=== PATIENT | female | born 1970 | race Caucasian/White ===

== ENCOUNTER 2016-08-18 08:21 | Outpatient (CLI) ==
[2015-03-03 14:16] VITALS: BMI 28.1
--- NOTE | 2016-08-18 09:21 | MAMMO ---
EXAM: Digital left diagnostic mammogram HISTORY: Nodular density posteriorly on the left MLO COMPARISON: Screening mammogram 07/25/2016 FINDINGS: Two left views of the breast were performed digitally and demonstrate no significant inte rval change. The nodular density seen on the left MLO breast is not identified on the left XCC L or MLO view. No additional abnormalities present. IMPRESSION: The nodular density seen in the previous left MLO is not identified on today's exam. T his may represent compressed summation artifact seen on prior exam or difficult positioning for eval uation of nodule on today's exam. RECOMMENDATION: Additional 6-month follow-up left breast mammogram to assure lack of visualized nodule is not second estrella to positioning. BIRADS category III: Probable benign finding
== END 2016-08-18 08:22 | disposition home or self-care (01) ==
LOC: RAD 08:21
PROVIDERS: ATTEND Family Medicine
DX: R92.8 Other abnormal and inconclusive findings on diagnostic imaging of breast (principal)

== ENCOUNTER 2016-10-22 11:57 | Outpatient (CLI) ==
[2015-03-03 14:16] VITALS: BMI 28.1
[2016-10-22 12:48] LABS: BASOPHILS % (AUTO) 1.2 % (0.0-3.0); EOSINOPHILS # (AUTO) 0.1 K/ul (0.0-0.7); EOSINOPHILS % (AUTO) 3.6 % (0.0-7.0); HEMATOCRIT 40.5 % (37.0-47.0); HEMOGLOBIN 13.4 g/dl (12.0-16.0); IMMATURE GRANULOCYTE % (AUTO) 0.3 % (0.0-5.0); LYMPHOCYTES # (AUTO) 1.6 K/uL (0.60-3.4); LYMPHOCYTES % (AUTO) 47.1 (10.0-50.0); MEAN CORPUSCULAR HEMOGLOBIN 31.3 pg (27.0-31.0); MEAN CORPUSCULAR HGB CONC 33.1 (31.8-35.4); MEAN CORPUSCULAR VOLUME 94.6 fl (81.0-99.0); MONOCYTES # (AUTO) 0.4 K/uL (0.4-2.0); MONOCYTES % (AUTO) 10.9 (0-10); NEUTROPHILS # (AUTO) 1.2 K/ul (2.0-6.9); NEUTROPHILS % (AUTO) 36.9; PLATELET COUNT 275 10^3/uL (140-440); RED BLOOD COUNT 4.28 10^6/ul (4.20-5.40); WHITE BLOOD COUNT 3.29 K/ul (4.6-10.2)
--- NOTE | 2016-10-22 12:48 | DI ---
Examination: Three radiographic images of the lumbar spine. Comparison: 11/21/2008. Reason for study: Back pain. FINDINGS: No acute fracture or listhesis. The vertebral bodies and intervertebral body disc space heights are well maintained. There is maintenance of the lumbar lordotic curve. The gallbladder hui s been removed. Impression: No acute fracture or listhesis in the lumbar spine. If clinical suspicion is high for osseous injury, CT imaging may be performed. If clinical suspici on is high for radiculopathy, then MRI may be performed.
[2016-10-22 12:49] LABS: BILIRUBIN,URINE Negative (NEGATIVE); KETONES,URINE Negative (NEGATIVE); LEUKOCYTE ESTERASE ,URINE Negative (NEGATIVE); NITRITE,URINE Negative (NEGATIVE); PROTEIN,URINE Negative (NEGATIVE); URINE, BLOOD Trace-lysed (NEGATIVE)
--- NOTE | 2016-10-22 12:50 | DI ---
EXAM: Sacrum and coccyx three view HISTORY: Back pain, coccyx pain COMPARISON: None TECHNIQUE: Three-view sacrum and coccyx were performed FINDINGS: Sacroiliac joints intact. Sacral arcuate intact. Sacrum and coccyx appear normal. No fo sánchez soft tissue abnormality. IMPRESSION: Normal examination.
[2016-10-22 12:58] LABS: ADD URINE MICROSCOPIC YES
[2016-10-22 13:26] LABS: ALBUMIN 3.8 g/dL (3.4-5.0); ALBUMIN/GLOBULIN RATIO 1.09; ANION GAP 11.6; BILIRUBIN,TOTAL 0.51 mg/dL (0.00-1.20); BUN/CREATININE RATIO 10.46; CALCIUM 9.4 mg/dL (8.2-10.2); CHOL/HDL RATIO 2.9 (4.5-5.5); CREATININE 0.86 mg/dL (0.60-1.30); POTASSIUM 4.6 mmol/L (3.5-5.10); TOTAL PROTEIN 7.3 g/dL (6.4-8.2)
== END 2016-10-22 11:58 | disposition home or self-care (01) ==
LOC: RAD 11:57
PROVIDERS: ATTEND Family Medicine
DX: E03.9 Hypothyroidism, unspecified (principal); E78.5 Hyperlipidemia, unspecified; F32.9 Major depressive disorder, single episode, unspecified; M12.9 Arthropathy, unspecified; Z79.899 Other long term (current) drug therapy; M54.5 Low back pain; M53.3 Sacrococcygeal disorders, not elsewhere classified
CPT/HCPCS: 36415; 80053; 80061; 81001; 84439; 84443; 85025

== ENCOUNTER 2017-01-15 09:59 | Outpatient (CLI) ==
[2015-03-03 14:16] VITALS: BMI 28.1
[2017-01-15 10:32] LABS: ALBUMIN 3.9 g/dL (3.4-5.0); ALBUMIN/GLOBULIN RATIO 1.22; ANION GAP 10.4; BILIRUBIN,TOTAL 0.43 mg/dL (0.00-1.20); BUN/CREATININE RATIO 11.39; CALCIUM 9.6 mg/dL (8.2-10.2); CHOL/HDL RATIO 2.4 (4.5-5.5); CREATININE 0.79 mg/dL (0.60-1.30); POTASSIUM 4.4 mmol/L (3.5-5.10); TOTAL PROTEIN 7.1 g/dL (6.4-8.2)
== END 2017-01-15 10:00 | disposition home or self-care (01) ==
LOC: LAB 09:59
PROVIDERS: ATTEND Nurse Practitioner Family
DX: E78.5 Hyperlipidemia, unspecified (principal)
CPT/HCPCS: 36415; 80053; 80061

== ENCOUNTER 2017-03-19 09:00 | Outpatient (RCR) ==
[2015-03-03 14:16] VITALS: BMI 28.1
--- NOTE | 2017-03-09 16:44 | RS.OPPTEV2 ---
Date of Note: 03/05/17 Visit #: 1 Date of Evaluation: 03/05/17 Payer Source: Medicaid Treatment Diagnosis: neck pain, cervical radiculopathy History of Condition/Mechanism of Injury:: Patient reports symtpoms began approximately a year ago with the sensation of crushing pain in the knuckles of the left hand. Patient reports having progressive neck pain. States radiating symptoms of numbness began in the left UE approximately two months ago. Prior Level of Function.....Patient was independent with: ADL's, Self Care, Work /Vocation, Caregiving, Ambulation/Mobility, Community Integration/Access Functional Limitations: Sleep, Self Care, ADL's, Reaching, Pushing, Pulling, Lifting, Carrying Current Subjective/complaints:: Reports numbness in the middle three fingers of the left hand are not constant. Symptoms usually occur when she is not doing anything. States headaches occur a couple times a week. Her history includes migraines, and states these headaches are progressively getting as bad as a migraine. States she has pain into the left shoulder and cannot tell if some of her pain is from the shoulder, as well as the neck. Reports difficulty driving or reading due to moderate neck pain. Medical History Medical History: Arthritis Surgical History: Cholecystectomy Smoking Status: Never smoker Patient's Goals: Her goal is to get relief of neck pain and radiating symptoms. Pain Assessment - Pain Description Pain Location: left side of neck Current Pain Intensity: 5/10 Worst Pain Intensity: 8/10 Functional Outcome Measure Neck Disability Index: 46 - G Codes & Severity Modifier G Codes & Modifier: NA Source of G Code score: NA Observation - Observation Posture: Forward Head, Rounded Shoulders, Scapula Asymmetry (left scapula elevated) Handedness: Right - ROM Comments: Cervical spine AROM is WFL's, with pain on the left side of the neck with cervical flexion. Reports tightness in the left side of the neck musculature with rotation left and right. Bilateral UE AROM is WFL's with discomfort and catch reported in the left shoulder. - Strength Comments: General UE strength 4+ to 5/5 throughout. Tuyere Fitter Strength Left Hand Tuyere Fitter Strength: 54 lbs. Right Hand Tuyere Fitter Strength: 45 lbs. Dynamometer Testing Position: 2nd Position Palpation Comments:: Moderate increased muscle tone along the left upper traps. Minimal increased muscle tone along the cervical paraspinals and right upper traps. Reports tenderness with palpation along the left upper traps. Sensation - Sensation Right Upper Extremity: Intact/Normal Left Upper Extremity: Intact/Normal Comments: Reports times of numbness in the middle three fingers of the left hand. - Heat/Cryotherapy Treatment: Hot Pack Comments:: X 10 mins to the cervical spine prior to traction - Traction Treatment Method: Mechanical, Intermittent, Cervical Patient Position: Supine Amount of Force Applied: 12-13 lbs. Hold Time: 30 sec Rest Time: 5 sec Duration of treatment: 10 mins Interventions - Exercise/Activities/Manual Therapy Exercises/Activities: No exercises given today. She was given two tennis balls to use for pressure at the base of the head to manage headache pain at home. Manual Therapy: Na HOME EXERCISE PROGRAM: none - Charges Total Direct Minutes: 55 mins Total Treatment Time: 55 mins Procedures billed for this date of service:: cristofer CRAWFORD Assessment Assessment: Patient presents to therapy with a diagnosis of cervical spondylosis with radiculopathy, bulging of cervcial disc, foraminal stenosis cervical region, chronic neck pain. She reports progressive headaches and left UE radiating symptoms. She describes difficulty driving, sleeping, reading, and lifting due to her symptoms. She demonstrates muscle guarding along the cervical spine and upper traps. She demonstrates good potential to benefit from mechanical traction, stretching, and postural stabilization ex's to reduce her symptoms and prevent them from returning. Patient Education: Education of diagnosis, Body/Joint mechanics, Activity Modification, Education of Plan of Care Rehab Potential: Good Short Term Goals Goal #1: Patient independent in initial HEP. Goal to be met by: 03/19/17 Goal #2: Pt to report minimal tightness with cervical AROM. Goal to be met by: 03/19/17 Goal #3: Left UE localized to the neck. Goal to be met by: 03/19/17 Goal #4: Muscle tone in the left upper traps decreased to minimal. Goal to be met by: 03/19/17 Peeler Operator Goals Goal #1: Pt knows HEP and to continue ex's to maintain functional level at D/C. Goal to be met by: 04/19/17 Goal #2: Score on Neck Disability index improved to 24. Goal to be met by: 04/19/17 Goal #3: Headache frequency decreased to seldom. Goal to be met by: 04/19/17 Goal #4: Pt to demonstrate good postural awareness. Goal to be met by: 04/19/17 Plan - Treatment to be Provided Procedures: Therapeutic Exercises, Manual Therapy, Patient Education Modalities: Electrical Stimulation, Ultrasound/Phonophoresis, Cryotherapy, Hot Packs - Treatment Plan Frequency: 3 X week Duration: 4 weeks ORDER # VISITS AND/OR THROUGH DATE: 04/19/17 - Treatment Code (1) Neck pain Comments: M54.2 (2) Foraminal stenosis of cervical region Comments: M99.91 (3) Cervical spondylitis with radiculitis Comments: M47.22
--- NOTE | 2017-03-10 14:14 | RS.OPPTDN ---
Subjective Date of Note: 03/10/17 Visit #: 2 Date of Evaluation: 03/05/17 Payer Source: Medicaid Treatment Diagnosis: neck pain, cervical radiculopathy Current Subjective/complaints:: Patient reports only slight change with first traction treatment, but realizes it will need to be progressed. Reports feeling better after treatment today. Pain Assessment - Pain Description Pain Location: left side of neck Current Pain Intensity: 5/10 - Treatment Modality: Ultrasound Parameters/Method Applied: [id number] at 1.5w/cm2 to the bilateral cervical paraspinals and upper traps. Patient Position: Sitting - Heat/Cryotherapy Treatment: Hot Pack ([id number] to the cervical spine prior to TX. Patient in sitting. ) - Traction Treatment Method: Mechanical, Intermittent, Cervical Patient Position: Supine Amount of Force Applied: 17# Hold Time: 35sec Rest Time: 5sec Duration of treatment: 15mins Interventions - Exercise/Activities/Manual Therapy Exercises/Activities: Assisted with cervical lateral flexion stretching. Reminded patinet to use tennis balls for pressure release. Total minutes of Exercise: 3mins Manual Therapy: Na HOME EXERCISE PROGRAM: Cervical lateral flexion stretch. - Charges Total Direct Minutes: 13mins Total Treatment Time: 43mins Procedures billed for this date of service:: HP, TX mechanical, US Assessment: Patient responds to treatment today. Will need to progress traction and HEP. Patient Education: Body/Joint mechanics, Home Exercise Program Patient demonstrates compliance with HEP?: Yes Short Term Goals Goal #1: Patient independent in initial HEP. Goal to be met by: 03/19/17 Progress towards Goal:: Progressing Goal #2: Pt to report minimal tightness with cervical AROM. Goal to be met by: 03/19/17 Goal #3: Left UE localized to the neck. Goal to be met by: 03/19/17 Goal #4: Muscle tone in the left upper traps decreased to minimal. Goal to be met by: 03/19/17 Medical Education Specialist Goals Goal #1: Pt knows HEP and to continue ex's to maintain functional level at D/C. Goal to be met by: 04/19/17 Goal #2: Score on Neck Disability index improved to 24. Goal to be met by: 04/19/17 Goal #3: Headache frequency decreased to seldom. Goal to be met by: 04/19/17 Goal #4: Pt to demonstrate good postural awareness. Goal to be met by: 04/19/17 Plan PLAN OF CARE EXPIRES ON:: 04/19/17 ORDER # VISITS AND/OR THROUGH DATE: 04/19/17 PLAN: Continue Plan of Care (Continue modalities, exercise and progressive traction.)
--- NOTE | 2017-03-12 11:55 | RS.OPPTDN ---
Subjective Date of Note: 03/12/17 Visit #: 3 Date of Evaluation: 03/05/17 Payer Source: Medicaid Treatment Diagnosis: neck pain, cervical radiculopathy Current Subjective/complaints:: Patient reports increased pain following last traction. Agrees to modalities, gentle manual therapy and exercise today. Pain Assessment - Pain Description Pain Location: left side of neck Current Pain Intensity: 5/10 - Treatment Modality: Ultrasound Parameters/Method Applied: [id number] at 1.5w/cm2 to the bilateral cervical parapsinals and upper traps. Patient Position: Sitting - Heat/Cryotherapy Treatment: Hot Pack ([id number] to the cervical spine prior to US and MT. Patient in supine. ) Interventions - Exercise/Activities/Manual Therapy Exercises/Activities: x3mins Gentle cervical lateral flexion stretching. Total minutes of Exercise: 3mins Manual Therapy: 8mins Gentle trigger point release along the cervical paraspinals and the mid upper traps. Patient with active trigger points in the mid cervical musculature. Patient in sitting. Total minutes of Manual Therapy: 8mins HOME EXERCISE PROGRAM: Cervical lateral flexion stretch. Tennis balls for occipital release and trigger point release. - Charges Total Direct Minutes: 23mins Total Treatment Time: 43mins Procedures billed for this date of service:: HP, US, MT Assessment: Patient responds better to gentle manual therapy. May try mechanical traction at a later time if tolerable. Patient Education: Body/Joint mechanics, Home Exercise Program, Home Safety Patient demonstrates compliance with HEP?: Yes Short Term Goals Goal #1: Patient independent in initial HEP. Goal to be met by: 03/19/17 Progress towards Goal:: Progressing Goal #2: Pt to report minimal tightness with cervical AROM. Goal to be met by: 03/19/17 Progress towards Goal:: Progressing Goal #3: Left UE localized to the neck. Goal to be met by: 03/19/17 Progress towards Goal:: No Change Goal #4: Muscle tone in the left upper traps decreased to minimal. Goal to be met by: 03/19/17 Mcfp Goals Goal #1: Pt knows HEP and to continue ex's to maintain functional level at D/C. Goal to be met by: 04/19/17 Goal #2: Score on Neck Disability index improved to 24. Goal to be met by: 04/19/17 Goal #3: Headache frequency decreased to seldom. Goal to be met by: 04/19/17 Goal #4: Pt to demonstrate good postural awareness. Goal to be met by: 04/19/17 Plan PLAN OF CARE EXPIRES ON:: 04/19/17 ORDER # VISITS AND/OR THROUGH DATE: 04/19/17 PLAN: Continue Plan of Care (Continue modalities and gently progress manual therapy and exercise.)
--- NOTE | 2017-03-17 12:04 | RS.OPPTDN ---
Subjective Date of Note: 03/17/17 Visit #: 4 Date of Evaluation: 03/05/17 Payer Source: Medicaid Treatment Diagnosis: neck pain, cervical radiculopathy Current Subjective/complaints:: Patient reports continued neck pain with c/c being muscle tightness and spasms at the right upper traps. Pain Assessment - Pain Description Pain Location: left side of neck Current Pain Intensity: moderate+, mild to mod following treatment - Treatment Modality: Electrical Stim Unattended Parameters/Method Applied: [id number] HVGC to 85p.v. with 4 small pads to the cerivical paraspinals and with upper traps with HP. Patient Position: Supine - Heat/Cryotherapy Treatment: Hot Pack ([id number] with Estim ) Interventions - Exercise/Activities/Manual Therapy Exercises/Activities: x3mins Gentle cervical lateral flexion stretching. Total minutes of Exercise: 3mins Manual Therapy: 22mins. Gentle trigger point release and along the cervical paraspinals and the mid upper traps. Patient in sitting. Total minutes of Manual Therapy: 22mins HOME EXERCISE PROGRAM: Cervical lateral flexion stretch. Tennis balls for occipital release and trigger point release. - Charges Total Direct Minutes: 25mins Total Treatment Time: 45mins Procedures billed for this date of service:: HP, Estim unattended, MT2 Assessment: Patient responds better to Estim and manual therapy. Patient Education: Body/Joint mechanics, Home Exercise Program Patient demonstrates compliance with HEP?: Yes Short Term Goals Goal #1: Patient independent in initial HEP. Goal to be met by: 03/19/17 Progress towards Goal:: Progressing Goal #2: Pt to report minimal tightness with cervical AROM. Goal to be met by: 03/19/17 Progress towards Goal:: Progressing Goal #3: Left UE localized to the neck. Goal to be met by: 03/19/17 Progress towards Goal:: No Change Goal #4: Muscle tone in the left upper traps decreased to minimal. Goal to be met by: 03/19/17 Progress towards Goal:: Progressing Retirement Goals Goal #1: Pt knows HEP and to continue ex's to maintain functional level at D/C. Goal to be met by: 04/19/17 Progress towards goal: Progressing Goal #2: Score on Neck Disability index improved to 24. Goal to be met by: 04/19/17 Goal #3: Headache frequency decreased to seldom. Goal to be met by: 04/19/17 Goal #4: Pt to demonstrate good postural awareness. Goal to be met by: 04/19/17 Plan PLAN OF CARE EXPIRES ON:: 04/19/17 ORDER # VISITS AND/OR THROUGH DATE: 04/19/17 PLAN: Continue Plan of Care
--- NOTE | 2017-03-19 14:56 | RS.OPPTDN ---
Subjective Date of Note: 03/19/17 Visit #: 5 Date of Evaluation: 03/05/17 Payer Source: Medicaid Treatment Diagnosis: neck pain, cervical radiculopathy Current Subjective/complaints:: Patient reports minimal reduction in pain with modalities and manual therapy, but no overall progress. States she is going for an appointment at Pain Management and feels she could stop therapy at this time due to limited progress. Pain Assessment - Pain Description Pain Location: left side of neck Current Pain Intensity: moderate+, mild to mod following treatment - Treatment Modality: Electrical Stim Unattended Parameters/Method Applied: [id number] HVGC to 85 p.v. with 4 small pads to the bilateral cervical paraspinals and upper traps with HP prior to MT and EX. Patient Position: Sitting - Heat/Cryotherapy Treatment: Hot Pack ([id number] with Estim ) Interventions - Exercise/Activities/Manual Therapy Exercises/Activities: x5mins Gentle cervical lateral flexion stretching. Isometric cervical retraction. Reviewed anterior chest stretch with towel roll along thoracic spine and doorway stretch. Total minutes of Exercise: 5mins Manual Therapy: 15mins. Gentle trigger point release and along the cervical paraspinals and the mid upper traps. Patient in sitting. Total minutes of Manual Therapy: 15mins HOME EXERCISE PROGRAM: Cervical lateral flexion stretch. Tennis balls for occipital release and trigger point release. Isometric cervical retraction. Doorway stretch and anterior chest stretch with towel roll along t-spine. - Charges Total Direct Minutes: 20mins Total Treatment Time: 40mins Procedures billed for this date of service:: HP, Estim unattended, EX Assessment: Patient with only temporary improvement in symptoms. She will continue HEP following discharge. Patient Education: Home Exercise Program Patient demonstrates compliance with HEP?: Yes Short Term Goals Goal #1: Patient independent in initial HEP. Goal to be met by: 03/19/17 Progress towards Goal:: Met Goal #2: Pt to report minimal tightness with cervical AROM. Goal to be met by: 03/19/17 Progress towards Goal:: Progressing Goal #3: Left UE localized to the neck. Goal to be met by: 03/19/17 Progress towards Goal:: No Change Goal #4: Muscle tone in the left upper traps decreased to minimal. Goal to be met by: 03/19/17 Progress towards Goal:: Progressing Long-Term Goals Goal #1: Pt knows HEP and to continue ex's to maintain functional level at D/C. Goal to be met by: 04/19/17 Progress towards goal: Met Goal #2: Score on Neck Disability index improved to 24. Goal to be met by: 04/19/17 Progress towards goal: No Change Goal #3: Headache frequency decreased to seldom. Goal to be met by: 04/19/17 Progress towards goal: No Change Goal #4: Pt to demonstrate good postural awareness. Goal to be met by: 04/19/17 Progress towards goal: Progressing Plan PLAN OF CARE EXPIRES ON:: 04/19/17 ORDER # VISITS AND/OR THROUGH DATE: 04/19/17 PLAN: Plan for Discharge (Discharge with HEP due to lack of progress.)
--- NOTE | 2017-03-19 15:03 | RS.QUICKDC ---
Discharge from PT Date of Discharge: 03/19/17 Number of Visits: 5 Reason for Discharge: Patient attended 5 session for treatment of neck pain with left UE radicular symptoms. She reported only temporary reduction in pain with no overall consisitent improvement. She reported she has an appointment with Pain Management and feels she can be discharged at this time. Please refer to the last Daily Note for specifics of treatment and goals. Discharge with HEP.
== END 2017-03-26 ==
PROVIDERS: ATTEND Nurse Practitioner Family
DX: M47.22 Other spondylosis with radiculopathy, cervical region (principal); M50.20 Other cervical disc displacement, unspecified cervical region; M99.81 Other biomechanical lesions of cervical region; M54.2 Cervicalgia

== ENCOUNTER 2017-06-17 06:46 | Outpatient (CLI) ==
[2015-07-25 09:08] VITALS: BMI 28.1
--- NOTE | 2017-06-17 08:27 | DI ---
EXAM: Radiographs, right tibia and fibula HISTORY: Right lower leg pain. COMPARISON: None available. TECHNIQUE: Frontal and lateral views. FINDINGS: Bone mineralization is normal. There is no fracture or dislocation. The joint spaces are maintained. No focal soft tissue abnormality is seen. IMPRESSION: No fracture or dislocation.
--- NOTE | 2017-06-17 09:09 | MRI ---
EXAM: MRI right knee without contrast. HISTORY: Right knee pain.. Meniscus tear a few years ago. No surgery. Pain after hiking.. TECHNIQUE: Using a local extremity coil on a high field strength magnet multiplanar multisequence ma gnet resonance imaging was performed of the right knee without intravenous or intra-articular gadolin ium contrast. . COMPARISON: MRI right knee 02/08/2014.. Two-view plain film examination right tibia/fibula 06/17/20 17. Two-view plain film examination right knee 10/02/2015. FINDINGS: Within the medial compartment the medial meniscus is intact without discrete surfacing men iscal tear. The compartment cartilage congruent without focal underlying subchondral edema. Within the lateral compartment lateral meniscus is intact without discrete surfacing meniscal tear. The lateral compartment cartilage congruent without focal underlying subchondral edema. Within the patellofemoral compartment the patella seated. Intact medial and lateral patellar retinac ulum. Mild patellar chondrosis/chondromalacia patella extending from median ridge over the medial fa cet. No underlying subchondral edema. Trochlear groove cartilage relatively congruent. Early kuhn lofemoral compartment productive osteophyte formation. Trace right knee effusion. No osteochondral loose bodies. Intact anterior and posterior cruciate li gaments. The extensor mechanism is intact. The medial collateral ligament as well as lateral collat eral ligament complex and posterolateral corner intact. Overall bone marrow signal intensity shows n o acute fracture, stress fracture or bone erosions.. IMPRESSION: No discrete surfacing meniscal tear identified. Mild patellar chondrosis/chondromalacia patella. Early patellofemoral compartment productive osteoph yte formation. Trace right effusion. No acute fracture/stress fracture. Intact cruciate and collateral ligaments..
== END 2017-06-17 06:47 | disposition home or self-care (01) ==
LOC: RAD 06:46
PROVIDERS: ATTEND Nurse Practitioner Family
DX: M25.561 Pain in right knee (principal); M79.661 Pain in right lower leg; E03.9 Hypothyroidism, unspecified; Z87.828 Personal history of other (healed) physical injury and trauma
CPT/HCPCS: 36415; 84443

== ENCOUNTER 2018-12-27 23:26 | Emergency (ER) ==
[2018-12-27 23:29] VITALS: BP 160/99; TEMP 97.6; BMI 25.9
--- NOTE | 2018-12-27 23:38 | ED.PDOC ---
General ED Provider: Dr. ANNEMARIE ASHRAF Chief Complaint: Abdominal Pain Stated Complaint: Right upper quadrant pain for 4 days with nausea. History of pancreatitis several years ago. Time Seen by Physician: 23:32 Mode of Arrival: Walk-In Information Source: Patient Exam Limitations: No limitations Primary Care Provider: LOGAN REYES Nursing and Triage Documentation Reviewed and Agree: Yes Does patient meet sepsis criteria?: No System Inflammatory Response Syndrome: Not Applicable Sepsis Protocol: For patient's 13 years and over: Temp is 96.8 and below OR 101 and greater Pulse >90 BPM Resp >20/minute Acutely Altered Mental Status Are patient's symptoms suggestive of a new infection, such as: -Pneumonia -Skin, Soft Tissue -Endocarditis -UTI -Bone, Joint Infection -Implantable Device -Acute Abdominal Infection -Wound Infection -Meningitis -Blood Stream Catheter Infection -Unknown Review of Systems - Review Of Systems Constitutional: Reports: Malaise Respiratory: Reports: No symptoms Cardiac: Reports: No symptoms GI: Reports: No symptoms, Abdominal pain, Nausea. Denies: Diarrhea, Vomiting : Reports: No symptoms Musculoskeletal: Reports: No symptoms, Back pain (upper adbominal pain thru to back; similar to prior history of pancreatitis) Skin: Reports: No symptoms All Other Systems: Reviewed and Negative Past Medical History - Past Medical History Endocrine: Reports: Hypothyroid Cardiovascular: Reports: Hypertension Respiratory: Reports: None, Other Hematological: Reports: None Gastrointestinal: Reports: Pancreatitis Genitourinary: Reports: None Neuro/Psych: Reports: None Musculoskeletal: Reports: Back Pain (as noted; upper abdomen pain thru to back) Cancer: Reports: None Last Menstrual Period: none Other Pertinent Past Medical History: FREQUENT FRACTURES NOTE RIGHT FEMUR AND RIGHT FOOT - Surgical History General Surgical History: Reports: Hysterectomy (1990), Cholecystectomy (1994) - Family History Family History: Reports: Unknown - Social History Smoking Status: Former smoker Hx Substance Use: No Alcohol Screening: None - Immunizations Tetanus Shot up to Date: Yes Physical Exam - Physical Exam Appearance: Well-appearing, Well-nourished Ill-appearing: None Pain Distress: Mild (sitting with a comfortable appearance; goes to recumbant position on exam bed without apparent distress or discomfort.) Musculoskeletal: Normal strength Skin: Warm Neurological: Sensation intact, Motor intact, Alert, Oriented Psychiatric: Affect appropriate, Mood appropriate Critical Care Note - Critical Care Note Total Time (mins): 20 Course - Course Hematology/Chemistry: 12/27/18 23:47 12/27/18 23:47 Orders, Labs, Meds: Lab Review 12/27/18 12/27/18 23:47 23:47 WBC 5.01 RBC 4.50 Hgb 13.7 Hct 41.7 MCV 92.7 MCH 30.4 MCHC 32.9 RDW Coeff of Amrik 12.8 Plt Count 286 Immature Gran % (Auto) 0.2 Neut % (Auto) 41.9 Lymph % (Auto) 41.1 Delta % (Auto) 11.2 H Eos % (Auto) 4.2 Baso % (Auto) 1.4 Immature Gran # (Auto) 0.0 Neut # (Auto) 2.1 Lymph # (Auto) 2.1 Delta # (Auto) 0.6 Eos # (Auto) 0.2 Baso # (Auto) 0.1 Sodium 136.9 Potassium 4.40 Chloride 105.0 Carbon Dioxide 23.7 Anion Gap 12.60 BUN 14.2 Creatinine 0.72 Estimated GFR (MDRD) 86.00 BUN/Creatinine Ratio 19.72 Glucose 106.2 H Calcium 9.66 Total Bilirubin 0.26 AST 32.5 ALT 23.0 Alkaline Phosphatase 61.5 Total Protein 7.69 Albumin 4.72 Globulin 2.97 Albumin/Globulin Ratio 1.58 Amylase 90.3 Lipase 315.0 H Orders Category Date Time Status NPO REMINDER: IMAGING ONCE CARE 12/28/18 00:14 Completed AMYLASE Stat LAB 12/27/18 23:47 Completed CBC W/ AUTO DIFF Stat LAB 12/27/18 23:47 Completed COMPREHENSIVE METABOLIC PANEL Stat LAB 12/27/18 23:47 Completed LIPASE Stat LAB 12/27/18 23:47 Completed Ketorolac Tromethamine [Toradol] MEDS 12/28/18 00:09 Discontinued 30 mg IVP ONCE STA Ondansetron HCl/Pf [Zofran 4 mg/2 ml] MEDS 12/27/18 23:39 Discontinued 4 mg IM ONCE STA Ondansetron HCl/Pf [Zofran 4 mg/2 ml] MEDS 12/28/18 00:10 Discontinued 4 mg IVP ONCE STA Promethazine HCl [Phenergan 25 mg/ml Vial] MEDS 12/28/18 00:39 Discontinued 25 mg .ROUTE .STK-MED ONE Promethazine HCl [Phenergan 25 mg/ml Vial] 12.5 mg MEDS 12/28/18 00:37 Active 0.9 % Sodium Chloride [Sodium Chloride] 50 ml IV ONCE Sodium Chloride 0.9% [Sodium Chloride] 1,000 ml MEDS 12/27/18 23:[address] ABDOMEN/PELVIS WO CONTRAST Stat RADS 12/28/18 00:13 Completed Medications Generic Name Dose Route Start Last Admin Trade Name Freq PRN Reason Stop Dose Admin Promethazine HCl 12.5 mg/ 50.5 mls @ 75 mls/hr 12/28/18 00:37 12/28/18 00:41 Sodium Chloride IV 12/28/18 01:17 75 mls/hr ONCE STA Administration Discontinued Medications Generic Name Dose Route Start Last Admin Trade Name Freq PRN Reason Stop Dose Admin Sodium Chloride 1,000 mls @ 1,000 mls/hr 12/27/18 23:39 12/27/18 23:58 Sodium Chloride IV 12/28/18 00:38 1,000 mls/hr BOLUS STA Administration Ketorolac Tromethamine 30 mg 12/28/18 00:09 12/28/18 00:15 Toradol IVP 12/28/18 00:10 30 mg ONCE STA Administration Ondansetron HCl 4 mg 12/27/18 23:39 12/27/18 23:58 Zofran 4 Mg/2 Ml IM 12/27/18 23:40 4 mg ONCE STA Administration Ondansetron HCl 4 mg 12/28/18 00:10 12/28/18 00:15 Zofran 4 Mg/2 Ml IVP 12/28/18 00:11 4 mg ONCE STA Administration Vital Signs: Temp Pulse Resp BP Pulse Ox 12/27/18 23:27 97.6 F 108 H 16 160/99 H 98 Departure - Departure Time of Disposition: 01:04 Disposition: HOME SELF-CARE Discharge Problem: Abdominal pain Qualifiers: Abdominal location: right upper quadrant Qualified Code(s): R10.11 - Right upper quadrant pain Instructions: Abdominal Pain (ED) Condition: Stable Pt referred to PMD for follow-up: Yes (Call for appointment) IPMP verified?: Yes Additional Instructions: Use pain and nausea medication; follow up with primary care provider. Return to an ER if worsening with vomiting more than 3 times in an houjr or fever of 101 or above. Prescriptions: Tramadol HCl [Ultram] 50 mg PO Q6HR #14 tablet Promethazine HCl [Phenergan Tab] 25 mg PO Q6H #14 tablet Allergies/Adverse Reactions: Allergies No Known Allergies Allergy (Verified 12/27/18 23:30) Home Medications: Ambulatory Orders Promethazine HCl [Phenergan Tab] 25 mg PO Q6H #14 tablet 12/28/18 Tramadol HCl [Ultram] 50 mg PO Q6HR #14 tablet 12/28/18
[2018-12-27] MEDS ORDERED: ZOFRAN 4 MG/2 ML IM STA (23:39)
[2018-12-27] MEDS ORDERED: SODIUM CHLORIDE 1,000 ML IV STA (23:39)
[2018-12-28] MEDS ORDERED: TORADOL IVP STA (00:09)
[2018-12-28] MEDS ORDERED: ZOFRAN 4 MG/2 ML IVP STA (00:10)
[2018-12-28] MEDS ORDERED: PHENERGAN 25 MG/ML VIAL 12.5 MG in SODIUM CHLORIDE 50 ML IV STA (00:37)
[2018-12-28] MEDS ORDERED: PHENERGAN 25 MG/ML VIAL ONE (00:39)
--- NOTE | 2018-12-28 00:59 | CT ---
Exam: CT of the abdomen and pelvis without contrast History: Left upper quadrant pain Technique: [address] of the abdomen and pelvis without intravascular contrast FINDINGS: The lung bases are clear. No significant liver abnormality. The adrenals, pancreas and s pleen are unremarkable. The stomach and hiatus are unremarkable.Prior cholecystectomy. There is a 4 cm benign cyst in the right kidney. The kidneys and collecting system are unremarkable otherwise. The appendix is normal. Bowel loops demonstrate normal caliber. No inflamatory change seen in the m esentery or retroperitoneum. Minor atherosclerotic calcification of the aorta without aneurysm. Prior hysterectomy. Normal urinary bladder. Normal pelvic bowel loops. No pelvic fat inflammation. No acute findings of the skeleton. Impression: 1. No inflammatory process, bowel or urinary obstruction is seen. No acute findings of the abdomen or pelvis.
== END 2018-12-28 01:24 | disposition home or self-care (01) ==
LOC: ED 23:26
DX: R10.11 Right upper quadrant pain (principal); M54.9 Dorsalgia, unspecified; E03.9 Hypothyroidism, unspecified; I10 Essential (primary) hypertension; Z87.19 Personal history of other diseases of the digestive system
CPT/HCPCS: 36415; 80053; 82150; 83690; 85025; 96361; 96365; 96375; 99283

== ENCOUNTER 2019-01-11 09:53 | Outpatient (CLI) | END 2019-01-11 09:54 | disposition home or self-care (01) | LOC: RHC-LAB 09:53 | PROVIDERS: ATTEND Nurse Practitioner Family | DX: E03.9 Hypothyroidism, unspecified (principal); Z76.89 Persons encountering health services in other specified circumstances | CPT/HCPCS: 36415; 80061; 84443 ==